=== PATIENT | female | born 1960 | race Caucasian/White ===

== ENCOUNTER 2018-08-17 14:33 | Emergency (ER) | payer SELFPAY ==
--- NOTE | 2018-08-17 16:31 | EDPHYS ---
Physician Documentation [facility] Name: Verito Holder Age: 57 yrs Sex: Female : 1960 Arrival Date: 08/17/2018 Time: 14:37 Bed 11 Private MD: ED Physician Facundo Mckay HPI: 08/18 04:06 This 57 yrs old Female presents to ER via Ambulatory with complaints of Rash. snw 04:06 The patient's rash thought to be caused by Dermatitis. The rash is located on the body snw diffusely. The rash can be described as diffuse, papular, raised. Onset: The symptoms/episode began/occurred suddenly, and became persistent. Associated signs and symptoms: Pertinent positives: itching. Severity of symptoms: At their worst the symptoms were moderate severe. It is unknown whether or not the patient has had similar symptoms in the past. It is unknown whether or not the patient has recently seen a physician. Historical: - Allergies: 08/17 14:45 PENICILLINS; sv 14:45 Sulfa (Sulfonamide Antibiotics); sv - PMHx: 14:45 Anxiety; Bipolar disorder; Depression; Hepatitis; Thyroid problem; sv - PSHx: 14:45 nose, jaw,; dental; D \T\ C; sv - Immunization history:: Adult Immunizations up to date. - Social history:: Smoking status: Patient/guardian denies using tobacco. - Ebola Screening: : No symptoms or risks identified at this time. ROS: 08/18 04:04 Constitutional: Negative for fever, chills, and weight loss, Eyes: Negative for injury, snw pain, redness, and discharge, ENT: Negative for injury, pain, and discharge, Neck: Negative for injury, pain, and swelling, Cardiovascular: Negative for chest pain, palpitations, and edema, Respiratory: Negative for shortness of breath, cough, wheezing, and pleuritic chest pain, Abdomen/GI: Negative for abdominal pain, nausea, vomiting, diarrhea, and constipation, Back: Negative for injury and pain, : Negative for injury, bleeding, discharge, and swelling, MS/Extremity: Negative for injury and deformity, Neuro: Negative for headache, weakness, numbness, tingling, and seizure, Psych: Negative for depression, anxiety, suicide ideation, homicidal ideation, and hallucinations. Skin: Positive for rash, diffusely. Exam: 04:02 Constitutional: This is a well developed, well nourished patient who is awake, alert, snw and in no acute distress. 04:02 Eyes: Pupils equal round and reactive to light, extra-ocular motions intact. Lids and lashes normal. Conjunctiva and sclera are non-icteric and not injected. Cornea within normal limits. Periorbital areas with no swelling, redness, or edema. ENT: Nares patent. No nasal discharge, no septal abnormalities noted. Tympanic membranes are normal and external auditory canals are clear. Oropharynx with no redness, swelling, or masses, exudates, or evidence of obstruction, uvula midline. Mucous membranes moist. Neck: Trachea midline, no thyromegaly or masses palpated, and no cervical lymphadenopathy. Supple, full range of motion without nuchal rigidity, or vertebral point tenderness. No Meningismus. Chest/axilla: Normal chest wall appearance and motion. Nontender with no deformity. No lesions are appreciated. Cardiovascular: Regular rate and rhythm with a normal S1 and S2. No gallops, murmurs, or rubs. Normal PMI, no JVD. No pulse deficits. Respiratory: Lungs have equal breath sounds bilaterally, clear to auscultation and percussion. No rales, rhonchi or wheezes noted. No increased work of breathing, no retractions or nasal flaring. Abdomen/GI: Soft, non-tender, with normal bowel sounds. No distension or tympany. No guarding or rebound. No evidence of tenderness throughout. Back: No spinal tenderness. No costovertebral tenderness. Full range of motion. MS/ Extremity: Pulses equal, no cyanosis. Neurovascular intact. Full, normal range of motion. Neuro: Awake and alert, GCS 15, oriented to person, place, time, and situation. Cranial nerves II-XII grossly intact. Motor strength 5/5 in all extremities. Sensory grossly intact. Cerebellar exam normal. Normal gait. Psych: Awake, alert, with orientation to person, place and time. Behavior, mood, and affect are within normal limits. 04:02 Head/face: Noted is open sores all over face and extremities. 04:02 Skin: Appearance: Color: pale, Temperature: warm, rash a severe rash is noted, rash and peeling skin, obvious picking of scabbed sores. Vital Signs: 08/17 14:51 BP 116 / 75; Pulse 97; Resp 16; Temp 97.8; Pulse Ox 98% ; sv MDM: 16:07 Patient medically screened. snw 08/18 04:04 Data reviewed: vital signs, nurses notes. Counseling: I had a detailed discussion with snw the patient and/or guardian regarding: the historical points, exam findings, and any diagnostic results supporting the discharge/admit diagnosis, the need for outpatient follow up, to return to the emergency department if symptoms worsen or persist or if there are any questions or concerns that arise at home. Special discussion: I discussed in detail with the patient the higher chance of wound infection based on his presenting history. Based on the history and exam findings, there is no indication for further emergent testing or inpatient evaluation. I discussed with the patient/guardian the need to see the primary care provider for further evaluation of the symptoms. Administered Medications: 08/17 16:47 Drug: Atarax 50 mg Route: PO; sv 16:49 Follow up: Response: Medication administered at discharge. hb Disposition: 08/17/18 16:30 Discharged to Home. Impression: Scabies, Rash and other nonspecific skin eruption. - Condition is Stable. - Discharge Instructions: Allergies, Adult, Rash, Scabies, Adult. - Prescriptions for Elimite 5 % Topical Cream - apply 1 application by TOPICAL route one time Wash after 12 hours.; 60 gram. Zyrtec 10 mg Oral Tablet - take 1 tablet by ORAL route once daily As needed; 20 tablet. - Medication Reconciliation Form, Thank You Letter, Antibiotic Education, Prescription Opioid Use form. - Follow up: Private Physician; When: 2 - 3 days; Reason: Recheck today's complaints, Continuance of care, Re-evaluation by your physician. Follow up: Emergency Department; When: As needed; Reason: Worsening of condition. Addendum: 08/19/2018 19:44 Co-signature as Attending Physician, Facundo Mckay MD. r n Signatures: Nataliia Valentin RN RN Katherine Bishop, AIRBRUSH ARTIST TECHNICAL-C AIRBRUSH ARTIST TECHNICAL-Csnw Facundo Mckay MD MD rn Baxter, Heather, RN RN Corrections: (The following items were deleted from the chart) 08/17 16:50 16:30 08/17/2018 16:30 Discharged to Home. Impression: Scabies; Rash and other hb nonspecific skin eruption. Condition is Stable. Forms are Medication Reconciliation Form, Thank You Letter, Antibiotic Education, Prescription Opioid Use. Follow up: Private Physician; When: 2 - 3 days; Reason: Recheck today's complaints, Continuance of care, Re-evaluation by your physician. Follow up: Emergency Department; When: As needed; Reason: Worsening of condition. yoav
--- NOTE | 2018-08-17 16:31 | ER ---
Nurse's Notes [facility] Name: Verito Holder Age: 57 yrs Sex: Female : 1960 Arrival Date: 08/17/2018 Time: 14:37 Bed 11 Private MD: Diagnosis: Scabies;Rash and other nonspecific skin eruption Presentation: 08/17 14:43 Presenting complaint: Patient states: "It starts off with a black dot and the rash just sv is everywhere." c/o itching. Transition of care: patient was not received from another setting of care. Onset of symptoms was August 16, 2018. Care prior to arrival: None. 14:43 Method Of Arrival: Ambulatory sv 14:43 Acuity: JAYME 4 sv 16:30 Risk Assessment: Do you want to hurt yourself or someone else? Patient reports no hb desire to harm self or others. Initial Sepsis Screen: Does the patient meet any 2 criteria? No. Patient's initial sepsis screen is negative. Does the patient have a suspected source of infection? No. Patient's initial sepsis screen is negative. Historical: - Allergies: 14:45 PENICILLINS; sv 14:45 Sulfa (Sulfonamide Antibiotics); sv - PMHx: 14:45 Anxiety; Bipolar disorder; Depression; Hepatitis; Thyroid problem; sv - PSHx: 14:45 nose, jaw,; dental; D \\T\\ C; sv - Immunization history:: Adult Immunizations up to date. - Social history:: Smoking status: Patient/guardian denies using tobacco. - Ebola Screening: : No symptoms or risks identified at this time. Screenin:49 Abuse screen: Denies threats or abuse. Denies injuries from another. Nutritional hb screening: No deficits noted. Tuberculosis screening: No symptoms or risk factors identified. Fall Risk None identified. Assessment: 16:49 General: Appears in no apparent distress. Behavior is calm, cooperative. Pain: Denies hb pain. Neuro: Level of Consciousness is awake, alert, obeys commands, Oriented to person, place, time, situation. Cardiovascular: Capillary refill < 3 seconds Patient's skin is warm and dry. Respiratory: Airway is patent Respiratory effort is even, unlabored, Respiratory pattern is regular, symmetrical. GI: No signs and/or symptoms were reported involving the gastrointestinal system. : No signs and/or symptoms were reported regarding the genitourinary system. EENT: No signs and/or symptoms were reported regarding the EENT system. Derm: Rash noted that is vesicular, diffuse. Musculoskeletal: No signs and/or symptoms reported regarding the musculoskeletal system. Vital Signs: 14:51 BP 116 / 75; Pulse 97; Resp 16; Temp 97.8; Pulse Ox 98% ; sv ED Course: 14:37 Patient arrived in ED. tw3 14:45 Triage completed. sv 14:45 Arm band placed on. sv 16:07 Katherine Ivey FNP-C is PHCP. snw 16:07 Facundo Mckay MD is Attending Physician. snw 16:30 Patient has correct armband on for positive identification. Call light in reach. hb 16:43 Fide Camejo, RN is Primary Nurse. hb 16:50 No provider procedures requiring assistance completed. Patient did not have IV access hb during this emergency room visit. Administered Medications: 16:47 Drug: Atarax 50 mg Route: PO; sv 16:49 Follow up: Response: Medication administered at discharge. hb Outcome: 16:30 Discharge ordered by . snw 16:50 Discharged to home ambulatory, with family. hb 16:50 Condition: stable 16:50 Discharge instructions given to patient, Instructed on discharge instructions, follow up and referral plans. medication usage, Demonstrated understanding of instructions, follow-up care, medications, Prescriptions given X 2. 16:50 Patient left the ED. hb Signatures: Nataliia Valentin RN RN Katherine Ivey FNP-C NEWBORN PHOTOGRAPHER-Csn Fide Camejo RN RN hb Wade, Tia tw3
[2018-08-17 16:55] VITALS: BP 116/75; TEMP 97.8; O2SAT 98
[2018-08-17] MEDS ORDERED: hydrOXYzine HCl 25 MG TAB ONE (16:56)
== END 2018-08-17 16:50 | disposition home or self-care (01) ==
LOC: ER 14:33
DX: B86 Scabies (principal); Z88.0 Allergy status to penicillin; Z88.2 Allergy status to sulfonamides
CPT/HCPCS: 99283